=== PATIENT | male | born 1980 | race Hispanic/Latino ===

== ENCOUNTER 2016-06-27 22:35 | Emergency (ER) | payer OTHER ==
[~2016-06-27] VITALS: Ht 175.3 cm; Wt 108.9 kg
[~2016-06-27 22:35] MED LIST: MOTRIN600 MG PO
--- NOTE | 2016-06-27 22:47 | ED CRITICAL CARE ---
History of Present Illness General Chief Complaint: ETOH/Drug Related Complaint Stated Complaint: BIBA FOR OVERDOSE Source: patient, EMS Exam Limitations: poor historian Allergies Coded Allergies: NO KNOWN ALLERGIES (05/02/14) Triage Nurses Notes Reviewed? yes HPI: This is a 36-year-old male with history of insulin-dependent diabetes, drug abuse status post snorting who arrives by EMS after being found at home. It is unclear who called EMS because he was alone on arrival. Patient found to be cyanotic and apneic. He was given 2 doses of intranasal Narcan without effect and then given a dose of 0.5 mg IV. He states that he usually uses the next day and was not intending to overdose. Patient is a lethargic but easily arousable on arrival. Heart rate is elevated. Patient is 95% on 3 L nasal cannula. He was reported to have vomited once at the scene. He reports that he uses [address]ox[address] off [address] on an occasional basis. He denies any illicit drug use besides Suboxone and heroin. He is a daily smoker. She denies any alcohol abuse. (ROEL CRONIN,[facility]) Vital Signs & Intake/Output Vital Signs & Intake/Output Vital Signs Date Time Temp Pulse Resp B/P Pulse O2 O2 Flow FiO2 Ox Delivery Rate 06/28 1205 99.5 74 18 139/72 96 Room Air 06/28 1204 99.5 06/28 1044 98.8 63 18 103/63 97 Room Air 06/28 0847 99.6 70 18 98/51 93 Room Air 06/28 0745 99.1 78 18 112/51 96 Nasal 2.0L Cannula 06/28 0701 94 Nasal 2.0L Cannula 06/28 0636 100.0 85 18 110/77 96 Nasal 2.0L Cannula 06/28 0508 102.9 06/28 0424 102.9 101 20 104/65 96 Nasal 2.0L Cannula 06/28 0254 99.2 102 22 138/72 97 Nasal 2.0L Cannula 06/28 0101 97.1 104 14 144/78 97 Nasal 2.0L Cannula 06/27 2250 20 95 Nasal 4.0L Cannula 06/27 2241 103 18 182/93 90 Room Air ED Intake and Output 06/28 0000 06/27 1200 Intake Total Output Total Balance Patient 240 lb Weight Reconcile Medications Alprazolam 1 MG TABLET 1 TAB PO 5XD ANXIETY (Reported) Amoxicillin/Potassium Clav (Augmentin 875-125 Tablet) 875 MG-125 MG TABLET 1 TAB PO BID INFECTION Buprenorphine HCl/Naloxone HCl (Suboxone 8 MG-2 MG Sl Film) 8 MG-2 MG FILM 3 STR SL DAILY OPIATE DEPENDENCE (Reported) Insulin Glargine,Hum.rec.anlog (Lantus Solostar) 100 UNIT/ML (3 ML) INSULN.PEN 36 UNITS SQ DAILY DIABETES (Reported) (ABDIAS CRONIN,STELLA) Past History Travel History Traveled to [place] past 21 day No Medical History Any Pertinent Medical History? see below for history Endocrine: diabetes Surgical History Surgical History: N Psychosocial History What is your primary language [place] Citizen Family History Hx Contributory? No (MICHAEL SEVILLA MD) Review of Systems Review of Systems Constitutional: Denies: chills, fever. Eyes: Reports: no symptoms. Ears, Nose, Throat, Mouth: Reports: no symptoms. Respiratory: Denies: cough, short of breath. Cardiovascular: Denies: chest pain, palpitations. Gastrointestinal/Abdominal: Denies: abdominal pain. Genitourinary: Reports: no symptoms. Musculoskeletal: Reports: no symptoms. Skin: Reports: no symptoms. Neurological/Psychological: Reports: anxiety. All Other Systems: Reviewed and Negative (MICHAEL SEVILLA MD) Physical Exam Physical Exam General Appearance: well developed/nourished, lethargic, moderate distress, obese Head: atraumatic, normal appearance Eyes: Bilateral: normal appearance, PERRL. Ears, Nose, Throat, Mouth: hearing grossly normal, moist mucous membrane Neck: normal inspection, supple, full range of motion Respiratory: decreased breath sounds, rhonchi Cardiovascular: tachycardia Core Measures ACS in differential dx? No CVA/TIA Diagnosis: No Severe Sepsis Present: No Septic Shock Present: No (MICHAEL SEVILLA MD) Progress Differential Diagnoses I considered the following diagnoses in my evaluation of the patient: [HEROIN ABUSE, POLYSUBSTANCE ABUSE, ASPIRATION PNEUMONIA] Diagnostic Imaging: Viewed by Me: Radiology Read. Discussed w/RAD: Radiology Read. CXR Impression: PATIENT: JEFFREY KITCHEN PRESENT AGE: 36 PATIENT ACCOUNT NO: [id number] : 79 LOCATION: [facility] ORDERING PHYSICIAN: MICHAEL SEVILLA MD SERVICE DATE: 06/27/16-2252 EXAM TYPE: RAD - XRY -PORTABLE CHEST XRAY EXAMINATION: CHEST 1 VIEW CLINICAL INFORMATION: Hypoxia. Overdose. COMPARISON: 05/02/2014. TECHNIQUE: An AP view of the chest is provided. FINDINGS: The cardiac silhouette is not enlarged. The mediastinal and hilar contours are unremarkable. There are neither pleural effusions nor pneumothoraces. There are no consolidations. The osseous structures are unremarkable. IMPRESSION: No evidence for acute disease. DICTATED BY: CHRISTI GALVAN MD DATE/TIME DICTATED:06/27/162318 MANUSCRIPTS CURATOR:ISATU DATE/TIME TRANSCRIBED:06/27/162318 CONFIDENTIAL, DO NOT COPY WITHOUT APPROPRIATE AUTHORIZATION. <Electronically signed in Other Vendor System> SIGNED BY: CHRISTI GALVAN MD 06/27/162322 Initial ED EKG: none Hand-Off Endorsed To: STELLA CALERO MD Endorsed Time: 0700 Pending: other (REEVALUATION) (ROEL CRONIN,MICHAEL) Plan of Care: Orders Procedure Date/time Status RT ED ORDERS 06/28 623 Active URINALYSIS 06/28 446 Complete BLOOD CULTURE 06/28 426 Active URINE DRUGS OF ABUSE 06/27 2253 Complete Telemetry/Transport Tank Technician 06/27 2252 Active COMPREHENSIVE METABOLIC PANEL 06/27 2252 Complete CBC WITHOUT DIFFERENTIAL 06/27 2252 Complete ACETONE 06/27 2252 Complete Laboratory Tests 06/28/16 0444: Urine Opiates Screen > 4000.00 H, Methadone Screen < 40, Barbiturate Screen < 60, Ur Phencyclidine Scrn < 6.00, Amphetamines Screen < 100, U Benzodiazepines Scrn > 800 H, Urine Cocaine Screen > 1000 H, Urine Cannabis Screen < 5.00, Urine Color YEL, Urine Clarity CLEAR, Urine pH 6.5, Ur Specific [place] 1.020, Urine Protein NEG, Urine Ketones NEG, Urine Nitrite NEG, Urine Bilirubin NEG, Urine Urobilinogen 0.2, Ur Leukocyte Esterase NEG, Ur Microscopic EXAM NOT REQUIRED, Urine Hemoglobin NEG, Urine Glucose 100 H 06/27/16 2306: Anion Gap 13, Estimated GFR > 60, BUN/Creatinine Ratio 14.0, Glucose 225 H, Calcium 9.1, Total Bilirubin 0.5, AST 45, ALT 55, Alkaline Phosphatase 98, Total Protein 7.3, Albumin 4.3, Globulin 3.0, Albumin/Globulin Ratio 1.4, CBC w Diff NO MAN DIFF REQ, RBC 4.60 L, MCV 90.0, MCH 30.2, RDW 12.6, MPV 7.1 L, Gran % 77.6 H, Lymphocytes % 18.4 L, Monocytes % 2.9, Eosinophils % 0.9, Basophils % 0.2, Absolute Granulocytes 10.7 H, Absolute Lymphocytes 2.5, Absolute Monocytes 0.4, Absolute Eosinophils 0.1, Absolute Basophils 0, PUBS MCHC 33.6, Acetone Level NEGATIVE Microbiology 06/28 0504 BLOOD: Blood Culture - RECD 06/28 0440 BLOOD: Blood Culture - RECD 4:27 AM TEMP 102. BCX, UNASYN, TYLENOL ORDERED. LIKELY ASPIRATION. (MICHAEL SEVILLA MD) Comments: Feels better. Awake stable oxygen saturation. (STELLA CALERO MD) Departure Departure Condition: Stable Clinical Impression Primary Impression: Heroin overdose Secondary Impressions: Aspiration pneumonia, Benzodiazepine abuse, Cocaine abuse Referrals: PATIENT HAS NO PRIMARY CARE DR (PCP/Family) Additional Instructions: Take the Augmentin as directed. Give prescription is at [facility]. Please follow up with list of outpatient detox facilities. Return as needed. Departure Forms: Customer Survey General Discharge Information Prescriptions: Current Visit Scripts Amoxicillin/Potassium Clav (Augmentin 875-125 Tablet) 1 TAB PO BID #20 TAB (MICHAEL SEVILLA MD) Departure Time of Disposition: 1217 Disposition: HOME OR SELF CARE (STELLA CALERO MD) Critical Care Note Critical Care Note Critical Care Time: 30-74 min (MICHAEL SEVILLA MD)
[2016-06-27] MEDS ORDERED: ALPRAZOLAM1 M2 PO (22:58)
[2016-06-27] MEDS ORDERED: LANTUS SOL100 UNIT/1 SQ (22:59)
[2016-06-27] MEDS ORDERED: SUBOXONE 8 MG-1 EACH SL (22:59)
[2016-06-27 23:16] LABS: ABSOLUTE BASOPHIL COUNT 0 /CUMM (0.0-0.2); ABSOLUTE EOSINOPHIL COUNT 0.1 /CUMM (0.0-0.7); ABSOLUTE GRANULOCYTE CT 10.7 /CUMM (1.4-6.5); ABSOLUTE LYMPH COUNT 2.5 /CUMM (1.2-3.4); ABSOLUTE MONOCYTE COUNT 0.4 /CUMM (0.10-0.60); BASOPHIL % 0.2 % (0.0-2.0); EOSINOPHIL % 0.9 % (0-5); GRANULOCYTE % 77.6 % (42.2-75.2); HEMATOCRIT 41.4 % (42-52); MEAN CORPUSCULAR HGB 30.2 PG (27.0-31.0); MEAN CORPUSCULAR HGB CONC 33.6 G/DL (33.0-37.0); MEAN PLATELET VOLUME 7.1 FL (7.4-10.4); PLATELET COUNT 297 /CUMM (130-400); RBC DISTRIBUTION WIDTH 12.6 % (11.5-14.5); WHITE BLOOD CELL COUNT 13.8 /CUMM (4.8-10.8)
--- NOTE | 2016-06-27 23:23 | RADIOLOGY REPORT ---
EXAMINATION: CHEST 1 VIEW CLINICAL INFORMATION: Hypoxia. Overdose. COMPARISON: 05/02/2014. TECHNIQUE: An AP view of the chest is provided. FINDINGS: The cardiac silhouette is not enlarged. The mediastinal and hilar contours are unremarkable. There are neither pleural effusions nor pneumothoraces. There are no consolidations. The osseous structures are unremarkable. IMPRESSION: No evidence for acute disease.
[2016-06-28] MEDS ORDERED: AUGMENTIN 875-1 EACH PO (06:38)
[2016-06-28 12:05] VITALS: BP 139/72
== END 2016-06-28 12:48 ==
LOC: ERH 22:35
PROVIDERS: Emergency Medicine
DX: T40.601A Poisoning by unspecified narcotics, accidental (unintentional), initial encounter (principal); J18.9 Pneumonia, unspecified organism; F13.10 Sedative, hypnotic or anxiolytic abuse, uncomplicated; F14.10 Cocaine abuse, uncomplicated
CPT/HCPCS: 1263; 80307; 81003; 87040; 96374; J0131; J2405; J7040